=== PATIENT | female | born 1965 | race Caucasian/White ===

== ENCOUNTER 2017-08-20 17:29 | Emergency (ER) | payer SELFPAY ==
[~2017-08-20] VITALS: Ht 165.1 cm; Wt 59.0 kg
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
[2017-08-20] MEDS ORDERED: ACETAMINOPHEN 325 MG TABLET PO ONE (18:00)
--- NOTE | 2017-08-20 18:20 | NUR ---
PT MEDICATED ORDERED.
[2017-08-20] MEDS ORDERED: ACETAMINOPHEN ES 500 MG TABLET ONE (18:24)
--- NOTE | 2017-08-20 18:50 | NUR ---
[employer]ST[employer] OFFICER AT TO INTERVIEW PT.
--- NOTE | 2017-08-20 19:00 | NUR ---
Patient discharged to home in stable condition. Written and verbal after care instructions given. Patient verbalizes understanding of instruction.
== END 2017-08-20 19:09 | disposition home or self-care (01) ==
LOC: ER 17:37
DX: S20.219A Contusion of unspecified front wall of thorax, initial encounter (principal); V49.49XA Driver injured in collision with other motor vehicles in traffic accident, initial encounter; Y93.89 Activity, other specified; Y92.89 Other specified places as the place of occurrence of the external cause; Y99.8 Other external cause status
CPT/HCPCS: 71045; 93005; 99284; A4606; Z7610